=== PATIENT | male | born 1940 | race Caucasian/White ===

== ENCOUNTER 2024-06-04 11:20 | Emergency (ER) | payer BC ==
[~2024-06-04] VITALS: Ht 172.7 cm; Wt 86.4 kg
[~2024-06-04 11:20] MED LIST: ALL DAY ALLERGY10 M2 PO; PROBIOTIC FORM1 EACH PO; RHINOCORT AQUA8.6 GM NS
[2024-06-04] MEDS ORDERED: ATORVASTATIN CA40 MG PO (11:27)
[2024-06-04] MEDS ORDERED: PANTOPRAZOLE SO40 MG PO (11:27)
[2024-06-04] MEDS ORDERED: FINASTERIDE5 M1 PO (11:27)
[2024-06-04] MEDS ORDERED: TRIAMT/HCTZ 37.5-25 (11:28)
[2024-06-04 11:49] LABS: BASO # 0.05 K/mm3 (0.02-0.10); EOS # 0.28 K/mm3 (0.04-0.40); EOS % 2.6 % (0.0-4.0); HEMATOCRIT 45.7 % (42.0-52.0); HEMOGLOBIN 15.3 g/dL (13.5-18.0); LYMPH# 4.49 K/mm3 (1.50-4.00); MEAN CELL VOLUME 98 fl (78-100); MEAN CORPUSCULAR HEMOGLOBIN 33 pg (27-31); MEAN CORPUSCULAR HGB CONC 34 g/dL (33-37); MEAN PLATELET VOLUME 10.3 fl (7.4-10.4); MONO # 1.27 K/mm3 (0.20-0.80); NEU # 4.51 K/mm3 (1.40-6.50); PLATELET COUNT 240 K/mm3 (130-400); RED BLOOD COUNT 4.66 M/mm3 (4.20-5.60); RED CELL DISTRIBUTION WIDTH 14.8 % (11.5-14.5); WHITE BLOOD COUNT 10.6 K/mm3 (4.8-10.8)
[2024-06-04 11:54] LABS: ALBUMIN 3.8 g/dL (3.4-4.8); SODIUM 140 mmol/L (136-145)
[2024-06-04 11:55] LABS: CALCIUM 9.2 mg/dL (8.3-10.5)
[2024-06-04 11:56] LABS: GLUCOSE 88 mg/dL (75-110); TOTAL PROTEIN 7.4 g/dL (6.2-8.1)
[2024-06-04 11:57] LABS: CARBON DIOXIDE 24 mmol/L (23-31)
[2024-06-04 11:58] LABS: TOTAL BILIRUBIN 1.1 mg/dL (0.2-1.2)
[2024-06-04 12:02] LABS: AST-SGOT 23 U/L (5-34)
[2024-06-04 12:03] LABS: ALT/SGPT 13 U/L (0-55)
[2024-06-04 12:08] LABS: TROPONIN-I < 0.030 ng/mL (0.00-0.033)
[2024-06-04 15:24] VITALS: BP 119/76
== END 2024-06-04 15:27 | disposition home or self-care (01) ==
LOC: ED 11:20
PROVIDERS: Physician Assistant
DX: R07.89 Other chest pain (principal); Z95.5 Presence of coronary angioplasty implant and graft; Z86.79 Personal history of other diseases of the circulatory system